=== PATIENT | male | born 1985 | race Hispanic/Latino ===

== ENCOUNTER 2022-11-18 22:18 | Emergency (ER) | payer SELFPAY ==
[~2022-11-18] VITALS: Ht 182.9 cm; Wt 113.4 kg
[2022-11-18 22:40] VITALS: BP 126/72; PULSE 132; RESP 18; TEMP 97.3; O2SAT 94
[2022-11-18 23:41] VITALS: BP 132/76; PULSE 99; RESP 18; TEMP 97.3; O2SAT 94
== END 2022-11-18 23:46 | disposition home or self-care (01) ==
LOC: ER 22:18
DX: S00.512A Abrasion of oral cavity, initial encounter (principal); S09.93XA Unspecified injury of face, initial encounter; Y08.89XA Assault by other specified means, initial encounter; Y93.89 Activity, other specified; Y92.89 Other specified places as the place of occurrence of the external cause; Y99.8 Other external cause status
CPT/HCPCS: 70486; 99284